=== PATIENT | female | born 1995 | race Caucasian/White ===

== ENCOUNTER → 2017-02-12 | Day surgery (SDC) | payer OTHER ==
--- NOTE | 2017-02-12 11:24 | FL ---
EXAMINATION TYPE: FL voiding cystourethrogram DATE OF EXAM: 02/12/2017 9:46 AM COMPARISON: NONE HISTORY: History of urinary tract infections as child with multiple UTIs over the last year. TECHNIQUE: Fluoroscopic voiding cystourethrogram. A total of 1.24 minutes of fluoroscopic time was ut ilized during procedure. Total of 500 cc of contrast is used for procedure. FINDINGS: Preprocedure long line teamster image shows Magdaleno catheter in place otherwise is unremarkable. Magdaleno cat heter is placed utilizing sterile technique by radiology nurse. Under fluoroscopic guidance, contrast is retrograde filled into bladder. Bladder shows satisfactory d istention without abnormal filling defect to suggest ureterocele. No suspicious outpouching or divert iculum is present. After filling up to 500 cc, there is no real-time evidence of vesicoureteral reflu x. Multiple attempts were made to have patient voided but patient cannot void on table to assess the urethra. It is presumed the patient this age that no congenital anomaly is present. Patient was then allowed to void in bathroom and post procedure radiograph showed complete emptying o f bladder. No suspicious collecting system or ureter contrast is identified. IMPRESSION: No vesicoureteral reflux bilaterally.
== END ==
LOC: RADPROMAIN 08:11
PROVIDERS: ATTEND Family Medicine
DX: R35.0 Frequency of micturition (principal)
CPT/HCPCS: 51600; 74455; Q9962

== ENCOUNTER → 2017-05-08 | Outpatient (CLI) | payer OTHER ==
--- NOTE | 2017-05-08 11:03 | US ---
EXAMINATION TYPE: US kidneys/renal and bladder DATE OF EXAM: 05/08/2017 COMPARISON: NONE CLINICAL HISTORY: Urinary Tract Infection N30.00. Frequent UTI's EXAM MEASUREMENTS: Right Kidney: 9.7 x 4.1 x 4.9 cm Left Kidney: 10.8 x 4.9 x 4.6 cm Right Kidney: no hydro or masses seen, inferior pole limited by overlying bowel gas Left Kidney: no hydro or masses seen Bladder: wnl Bilateral Jets seen: yes The kidneys appear morphologically normal. IMPRESSION: NORMAL RENAL ULTRASOUND.
== END | disposition home or self-care (01) ==
LOC: RADUSWWP 10:29
PROVIDERS: ATTEND Urology
DX: N30.00 Acute cystitis without hematuria (principal)
CPT/HCPCS: 76770

== ENCOUNTER → 2018-02-20 | Outpatient (CLI) | payer OTHER ==
--- NOTE | 2018-02-21 07:42 | US ---
EXAMINATION TYPE: US pelvis complete transvag DATE OF EXAM: 02/20/2018 COMPARISON: NONE CLINICAL HISTORY: R10.813 right lower quadrant abdominal tenderness. TECHNIQUE: Transabdominal sonographic images of the pelvis were acquired. Transvaginal sonographic images were medically necessary to better assess the following anatomy: IUD placement Date of LMP: 2 months prior EXAM MEASUREMENTS: Uterus: 8.2 x 2.5 x 3.9 cm Endometrial Stripe: 0.7 cm Right Ovary: 4.1 x 3.0 x 3.0 cm Left Ovary: 2.8 x 2.2 x 2.0 cm 1. Uterus: Anteverted wnl, IUD appears to be in proper position 2. Endometrium: wnl 3. Right Ovary: dominant follicle seen measuring 2.2 x 1.8 x 1.8cm 4. Left Ovary: wnl 5. Bilateral Adnexa: wnl 6. Posterior cul-de-sac: wnl IMPRESSION: 1. Appropriately placed IUD. 2. Dominant right-sided ovarian follicle.
== END | disposition home or self-care (01) ==
LOC: RADUSWWP 15:32
PROVIDERS: ATTEND Family Medicine
DX: R10.813 Right lower quadrant abdominal tenderness (principal); Z97.5 Presence of (intrauterine) contraceptive device
CPT/HCPCS: 76830; 76856